=== PATIENT | male | born 1985 | race Caucasian/White ===

== ENCOUNTER 2020-03-29 08:25 | Emergency (ER) | payer OTHER, SELFPAY ==
[2020-03-29 08:32] VITALS: BMI 38.4
[2020-03-29 08:34] VITALS: BP 141/94; PULSE 85; RESP 16; TEMP 37; O2SAT 94
--- NOTE | 2020-03-29 08:35 | ED_ITS ---
HPI - Extremity Problem General: Chief complaint: Extremity Injury, Upper Stated complaint: METAL IN L ARM Time Seen by Provider: 03/29/20 08:30 Source: patient Mode of arrival: ambulatory Limitations: no limitations History of Present Illness: HPI Narrative: Pt was hammering bull dozer pin, broke off and shrapnel embedded into left forearm Review of Systems General: Reports: 10 or more systems reviewed and unremarkable except in HPI and below Skin/Breast: Reports: new lesions (fb laceration on left forearm ) Physical Exam Const: COMMON NORMALS: no acute distress, patient oriented x3, no limitations and alert GENERAL APPEARANCE: cooperative and comfortable ORIENTATION/C ONSCIOUSNESS: Yes awake, Yes oriented to person, Yes oriented to place and Yes oriented to time HENMT: COMMON NORMALS: normocephalic, atraumatic, external ears normal, EAC's normal, TM's normal bilaterally and Normal external nose present HEAD & SCALP: normal to inspection, normocephalic and atraumatic FACE & SINUS: normal facial exam, sinuses nontender and face symmetric NOSE: Normal external nose present, Normal nares present and No nasal discharge present EXTERNAL EAR: Yes external ears normal EXTERNAL AUDITORY CANAL: EAC's normal TYMPANIC MEMBRANE: TM's normal bilaterally MOUTH: Normal oral and palatal mucosa present, lip normal and tongue normal THROAT: posterior oropharynx normal, tonsils normal and uvula midline Eye: COMMON NORMALS: Equal, round and reactive pupils present, EOMs intact bilaterally and conjunctivae normal GENERAL EYE: appearance normal, both eyes and all related structures and normal light reflex EYELID: eyelids normal CONJUNCTIVA: Yes conjunctivae normal PUPIL: Yes Equal, round and reactive pupils present EOM: Yes EOM abnormal DIRECT OPHTHALMOSCOPY: Yes normal light reflex Neck/C-Spine: COMMON NORMALS: full ROM, no lymphadenopathy, supple, no meningeal signs, no JVD and Thyroid normal GENERAL: Yes normal visual inspection THYROID: Thyroid normal CERVICAL SPINE: Yes cervical ROM normal and Yes normal cervical lordosis Lymph: LYMPHATIC: no lymphadenopathy noted Chest: COMMONS NORMALS: normal inspection of the chest and normal palpation of entire chest wall Resp: COMMON NORMALS: normal respiratory effort, No retractions and clear to auscultation bilaterally AUSCULTATION: clear to auscultation bilaterally Cardio: COMMON NORMALS: no JVD, regular rate, regular rhythm, S1 normal heart sound present, S2 normal heart sound present, No gallops present (Cardio), No clicks present (Cardio), No murmurs present (Cardio), No rub (Cardio) and Peripheral pulses 2+ throughout RATE: regular rate RHYTHM: regular rhythm HEART SOUNDS: S1 normal heart sound present and S2 normal heart sound present PERIPHERAL PULSES: Peripheral pulses 2+ throughout GI: COMMON NORMALS: Normal to inspection, nondistended, normoactive bowel sounds present, Soft to palpation, non-tender and no masses PALPATION: Yes Soft to palpation : COMMON NORMALS: Yes no CVA tenderness BLADDER/KIDNEY EXAM: Yes no CVA tenderness Back/Pelvis: COMMON NORMALS: no CVA tenderness, thoracic and lumbar spine normal to inspection, no thoracic nor lumbar tenderness and thoraco-lumbar ROM normal Extremity: COMMON NORMALS: normal to inspection, full ROM, capillary refill normal, no joint enlargement, no clubbing, cyanosis or edema, no calf tenderness and no pedal edema GENERAL: Yes normal exam except as noted LEFT UPPER EXTREMITY: Yes lower arm (fb noted per xray; laceration of 0.5cmx 1.5 cm ) Neuro: COMMON NORMALS: patient oriented x3, moves all extremities, no focal motor deficits, no sensory deficits noted and gait normal SENSORIUM/ORIENTATION: Yes alert, Yes oriented to person, Yes oriented to place and Yes oriented to time MENINGEAL SIGNS: Yes no meningeal signs Psych: COMMON NORMALS: mental status grossly normal, Normal thought process present, cooperative, normal affect, speech normal and activity/motor behavior normal SPEECH: Yes normal speech THOUGHT PROCESS: Normal thought process present Skin: COMMON NORMALS: no rashes or lesions noted, no wounds and turgor normal GENERAL SKIN EXAM: no rashes or lesions noted and turgor normal Procedures Laceration Laceration 1: Site: upper extremity Side (If applicable): left Size (cm): 1.5 Description: linear Depth: simple, single layer Local Anesthetic: lidocaine 1% Amount of anesthesia used (mL): 5 Pre-repair: irrigated extensively Skin layer closed with: nylon Size (cm): 4-0 Number of sutures: 2 Technique: simple, interrupted Course ED course: Pt presents after FB embedded into lt arm while working with bull dozer pin that broke off. Xray performed. Reevaluation(s): Reevaluation #1: Dr Guardado contacted and advised that pt be seen for outpt surgery on . Will do simple closure of laceration and cleanse thoroughly. Prophyllactic antibx given and wound care instructions Time: 10:21 Vital Signs: Vital signs: Vital Signs Temperature 98.6 F 03/29/20 08:34 Pulse Rate 85 03/29/20 08:34 Respiratory Rate 16 03/29/20 08:34 Blood Pressure 141/94 03/29/20 08:34 Pulse Oximetry 94 03/29/20 08:34 Discharge Plan Discharge Patient Disposition: Home Clinical Impression: Foreign body (FB) in soft tissue Condition: Stable Prescriptions: No Action No Known Home Medications RF: 0 Referrals: Yehuda Guardado MD [Physician] - (go to office to set up appt for ) Discharge Diet: Usual diet Discharge Activity: Resume usual activity Activity Restrictions/Additional Instructions: Cleanse area once to twice daily or if dressing becomes wet. Cleanse with ns and cover with bacitracin. follow up with Dr. Guardado. 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
--- NOTE | 2020-03-29 08:50 | XR_ITS ---
WS: [id number] LEFT FOREARM 2 VIEWS HISTORY: Foreign body. COMPARISON: None available. No fracture or dislocation. Radiopaque foreign body measuring 10 mm in the soft tissues of the distal forearm. Foreign bodies in the anterior and lateral soft tissues. XR/XR forearm LT 2V [id number] IMPRESSION: 10 mm foreign body in the distal anterolateral forearm.
--- NOTE | 2020-03-29 09:47 | PC.NURSE ---
rocephen given IM split into two doses, not as infusion as listed in the MAR
[2020-03-29] MEDS: bacitracin ointment Pkt 1 EACH TOPICAL (10:19)
[2020-03-29 10:31] VITALS: BP 134/91; PULSE 76; RESP 15; O2SAT 96
== END 2020-03-29 10:30 | disposition home or self-care (01) ==
PROVIDERS: Emergency Provider Nurse Practitioner Family
DX: S51.842A Puncture wound with foreign body of left forearm, initial encounter (principal); W26.8XXA Contact with other sharp object(s), not elsewhere classified, initial encounter
CPT/HCPCS: 12001; 12345; 73090; 96372; 99282; 99283; J0696

== ENCOUNTER 2020-03-31 06:19 | Day surgery (SDC) | payer OTHER, SELFPAY ==
[2020-03-30 08:45] VITALS: BMI 38.4
[2020-03-31 06:43] VITALS: BP 127/80; PULSE 79; RESP 18; TEMP 36.5; O2SAT 97
[2020-03-31] MEDS: sodium chloride 0.9% 1,000 ML 30 ML IV (06:57)
--- NOTE | 2020-03-31 06:58 | W.PM.OPSUD ---
Surgery/Procedure H&P Update DATE OF PROCEDURE: March 31, 2020 DATE H&P PERFORMED: 03/29/20 PREOP DIAGNOSIS: Foreign body left arm PLANNED PROCEDURE: Operation Date: 03/31/20 07:55 Proposed Procedures p Foreign Body Upper Extremity left forearm 44639 S40.852A(Left) - Yehuda Guardado MD
--- NOTE | 2020-03-31 07:18 | ANES.PREANE2 ---
Pre-Anesthetic Assessment Pre-Anesthetic Assessment: Height/Weight: Height 1.75 m Weight 117.934 kg Temp Pulse Resp BP Pulse Ox 97.7 F 79 18 127/80 97 03/31/20 06:43 03/31/20 06:43 03/31/20 06:43 03/31/20 06:43 03/31/20 06:43 Preop Diagnosis: Foreign body left arm Proposed Procedure: Operation Date: 03/31/20 07:55 Proposed Procedures p Foreign Body Upper Extremity left forearm 58501 S40.852A(Left) - Yehuda Guardado MD Last intake: Intake Last Liquid Date 03/30/20 Last Liquid Time 22:00 Last Solid Date 03/30/20 Last Solid Time 22:00 Social: Social History: Alcohol (occ) and Tobacco (chews) Exam: Pre-Anes Outpt Exam: alert, oriented x 3, clear to auscultation bilaterally and regular rate & rhythm Airway: Submandibular: WNL Cervical ROM: WNL MP: 2 Dentition: Other (teeth ok) History/ROS: No significant complaints Anesthetic Plan: ASA status: 2 Anesthesia: Anesthesia Evaluation and MAC Risk of > 500 ml blood loss (7ml/kg in children): No Meds/Allergies Current Medications: Current Medications Generic Name Dose Route Start Last Admin Trade Name Freq PRN Reason Stop Dose Admin Sodium Chloride 1,000 mls @ 30 ml s/hr 03/31/20 06:30 03/31/20 06:57 Sodium Chloride 0.9% IV 04/01/20 06:29 30 mls/hr .Q24H GODFREY Administration Data Anesthesia Cardiac Studies: No Data to Display
--- NOTE | 2020-03-31 08:37 | P.OP_ITS ---
Operative Report Date of procedure: March 31, 2020 Pre-op Diagnosis: Foreign body left arm Post-op diagnosis: same Post-op Findings: Same Procedure Done: Removal foreign body left arm Pathology: none sent Surgeon: Yehuda Guardado Anesthesia: MAC Estimated blood loss (mL): 10 Complications: None Findings: The patient had a metallic foreign body approximately 4 x 6mm deep to the fascia of the right volar radial distal forearm no purulence or necrotic tissue was identified Condition: stable Disposition: PACU Procedure: Patient was taken to the operating room and sedation was provided by anesthesia. The arm was prepped and draped in the usual fashion. His stitches were removed. Utilizing deep Ujne retractors the wound was explored and deep to the fascia embedded in the area of his brachial radialis musculature of the distal forearm the metallic foreign body was identified and removed with a hemo stat. The wound was irrigated with saline. The skin is closed with 3-0 Prolene. The incision was dressed with Xeroflo gauze and 4 x 4's and Coban dressing. Patient was taken to outpatient in stable condition.
[2020-03-31 08:42] VITALS: BP 129/80; PULSE 72; RESP 18; TEMP 36.1; O2SAT 97
[2020-03-31 09:00] VITALS: BP 162/99; PULSE 60; RESP 18; TEMP 36.1; O2SAT 99
== END 2020-03-31 09:37 | disposition home or self-care (01) ==
PROVIDERS: Visit Provider Orthopaedic Surgery
PROC: (CPT 25248; principal; 2020-03-31 07:55)
DX: S50.852A Superficial foreign body of left forearm, initial encounter (principal); X58.XXXA Exposure to other specified factors, initial encounter; Y99.0 Civilian activity done for income or pay
CPT/HCPCS: 25248; 12345; J2250; J3010; J7030

== ENCOUNTER 2022-08-21 21:32 | Inpatient (IN) | payer OTHER, SELFPAY ==
[2022-08-21 21:38] VITALS: BP 130/99; PULSE 102; RESP 18; TEMP 36.4; O2SAT 98; BMI 38.4
[2022-08-21 22:05] LABS: Basophils % 0.5 %; Eosinophils # 0.1 10^3/uL (0.0-0.8); Eosinophils % 1.1 %; Hemoglobin 15.5 g/dL (11.7-16.6); Lymphocytes # 3.2 10^3/uL (0.8-4.8); Lymphocytes % 40.4 %; Mean Corpuscular HGB Conc 34.4 g/dL (30.0-36.0); Mean Corpuscular Hemoglobin 29.6 pg (28.0-34.0); Mean Corpuscular Volume 85.9 fl (80-94); Mean Platelet Volume 9.2 fL (7.4-10.4); Monocytes # 0.5 10^3/uL (0.2-0.9); Neutrophils # 4.08 10^3/uL (1.8-7.7); Neutrophils % 50.9 %; Nucleated Red Blood Cells % 0 %; Platelet Count 388 10^3/cmm (130-400); Red Blood Count 5.24 10^6/uL (4.1-5.3); Red Cell Distribution Width 11.6 % (12.1-15.1)
--- NOTE | 2022-08-21 22:14 | W.ED.PSYCHS ---
HPI - Psych General: Chief Complaint: Psychiatric Symptoms Stated Complaint: SI Time Seen by Provider: 08/21/22 21:34 Source: patient Mode of arrival: ambulatory Limitations: no limitations History of Present Illness: 37-year-old male states that he has been having depression for the last 6 months. He states that he has been having worsening depression he states that in having active suicidal plans which he will not tell me what they are he denies any worsening proving factors. Patient does admit to alcohol use he had no previous admissions or treatment for his depression he does not take any meds. Associated symptoms: Reports depression and suicidal ideation Review of Systems Const: Denies: fever(s), chills, body aches or change in appetite Eyes: Denies: blurry vision or eye discomfort ENMT: Denies: throat pain or dental pain Card: Denies: chest pain Resp: Denies: dyspnea GI: Denies: abdominal pain, nausea, vomiting or diarrhea : Denies: dysuria Musc: Denies: neck pain or back pain Skin/Breast: Denies: rash Neuro: Denies: headache(s) Psych: Reports: depression and suicidal ideation [place]/Lymph: Denies: easy bruising All/Imm: Denies: urticaria PFSH ED PFSH: Surgical History No history of previous surgery Social History (Updated 08/21/22 @ 22:14 by Hair Barton MD) Alcohol intake: current Physical Exam Const: COMMON NORMALS: no acute distress, patient oriented x3 and healthy appearing HENMT: COMMON NORMALS: normocephalic and atraumatic HEAD & SCALP: normocephalic and atraumatic Eye: COMMON NORMALS: Equal, round and reactive pupils present and EOMs intact bilaterally PUPIL: Yes Equal, round and reactive pupils present Neck/C-Spine: COMMON NORMALS: full ROM and supple Chest: COMMONS NORMALS: normal inspection of the chest and normal palpation of entire chest wall Resp: COMMON NORMALS: normal respiratory effort, No retractions, No use of accessory muscles and clear to auscultation bilaterally AUSCULTATION: clear to auscultation bilaterally Cardio: COMMON NORMALS: regular rate, regular rhythm and No murmurs present (Cardio) RATE: regular rate RHYTHM: regular rhythm GI: COMMON NORMALS: Normal to inspection, nondistended, normoactive bowel sounds present, Soft to palpation, non-tender and no masses PALPATION: Yes Soft to palpation Extremity: COMMON NORMALS: normal to inspection and full ROM Neuro: COMMON NORMALS: patient oriented x3, moves all extremities and no focal motor deficits Psych: COMMON NORMALS: mental status grossly normal, Normal thought process present and cooperative MOOD & AFFECT: Yes depressed mood THOUGHT PROCESS: Normal thought process present THOUGHT CONTENT: Yes Suicidality present Skin: COMMON NORMALS: no rashes or lesions noted and no wounds GENERAL SKIN EXAM: no rashes or lesions noted Course Vital Signs: Vital signs: Vital Signs Temperature 97.5 F L 08/21/22 21:38 Pulse Rate 102 H 08/21/22 21:38 Respiratory Rate 18 08/21/22 21:38 Blood Pressure 130/99 08/21/22 21:38 Pulse Oximetry 98 08/21/22 21:38 Oxygen Delivery Me thod 08/21/22 21:38 MDM - Psych Medical Decision Making Patient presents here with suicidal ideation he is medically cleared spoke to psychiatrist will admit patient placed on a 96-hour hold. Lab Data 08/21/22 21:55 08/21/22 21:55 Laboratory Results WBC 8.0 10^3/uL (4.0-10.0) 08/21/22 21:55 RBC 5.24 10^6/uL (4.1-5.3) 08/21/22 21:55 Hgb 15.5 g/dL (11.7-16.6) 08/21/22 21:55 Hct 45.0 % (42.0-52.0) 08/21/22 21:55 MCV 85.9 fl (80-94) 08/21/22 21:55 MCH 29.6 pg (28.0-34.0) 08/21/22 21:55 MCHC 34.4 g/dL (30.0-36.0) 08/21/22 21:55 RDW 11.6 % (12.1-15.1) L 08/21/22 21:55 Plt Count 388 10^3/cmm (130-400) 08/21/22 21:55 MPV 9.2 fL (7.4-10.4) 08/21/22 21:55 Neut % (Auto) 50.9 % 08/21/22 21:55 Lymph % (Auto) 40.4 % 08/21/22 21:55 [place] % (Auto) 6.0 % 08/21/22 21:55 Eos % (Auto) 1.1 % 08/21/22 21:55 Baso % (Auto) 0.5 % 08/21/22 21:55 Neut # (Auto) 4.08 10^3/uL (1.8-7.7) 08/21/22 21:55 Lymph # (Auto) 3.2 10^3/uL (0.8-4.8) 08/21/22 21:55 [place] # (Auto) 0.5 10^3/uL (0.2-0.9) 08/21/22 21:55 Eos # (Auto) 0.1 10^3/uL (0.0-0.8) 08/21/22 21:55 Baso # (Auto) 0.0 10^3/uL (0.0-0.1) 08/21/22 21:55 Nucleated RBC % (auto) 0 % 08/21/22 21:55 Nucleated RBCs # 0.0 /100WBC 08/21/22 21:55 Sodium 136 mmol/L (136-145) 08/21/22 21:55 Potassium 3.8 mmol/L (3.5-5.1) 08/21/22 21:55 Chloride 98 mmol/L (98-107) 08/21/22 21:55 Carbon Dioxide 27 mmol/L (22-29) 08/21/22 21:55 Anion Gap 14.8 (5-19) 08/21/22 21:55 BUN 8 mg/dL (6-20) 08/21/22 21:55 Creatinine 1.0 mg/dL (0.7-1.2) 08/21/22 21:55 GFR Calculation 84.1 mL/min (90-130) L 08/21/22 21:55 Glucose 99 mg/dL (65-115) 08/21/22 21:55 Calculated Osmolality 280 mOsm/kg (285-295) L 08/21/22 21:55 Calcium 8.9 mg/dL (8.5-10.5) 08/21/22 21:55 Total Bilirubin 0.3 mg/dL (0.15-1.2) 08/21/22 21:55 AST 36 U/L (0-40) 08/21/22 21:55 ALT 51 U/L (0-41) H 08/21/22 21:55 Alkaline Phosphatase 96 U/L (40-130) 08/21/22 21:55 Total Protein 8.0 g/dL (6.6-8.7) 08/21/22 21:55 Albumin 4.4 g/dL (3.5-5.2) 08/21/22 21:55 Globulin 3.6 g/dL (1.3-4.6) 08/21/22 21:55 Salicylates < 0.3 mg/dL (3-10) L 08/21/22 21:55 Urine Opiates Screen Negative ng/mL (Negative) 08/21/22 22:32 Acetaminophen < 5.0 ug/mL (10-30) L 08/21/22 21:55 Ur Barbiturates Screen Negative ng/mL (Negative) 08/21/22 22:32 Ur Amphetamines Screen Negative ng/mL (Negative) 08/21/22 22:32 U Benzodiazepines Scrn Negative ng/mL (Negative) 08/21/22 22:32 Ethyl Alcohol 208 mg/dL (0-10) H 08/21/22 21:55 Discharge Plan Discharge Patient Disposition: Admitted As Inpatient Admit Provider: Carlos Higgins Clinical Impression: Suicidal ideation Condition: Stable Coding Level of Care Code 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
[2022-08-21 22:25] LABS: Alanine Aminotransferase 51 U/L (0-41); Albumin Level 4.4 g/dL (3.5-5.2); Alcohol Level 208 mg/dL (0-10); Alkaline Phosphatase 96 U/L (40-130); Anion Gap 14.8 (5-19); Aspartate Amino Transferase 36 U/L (0-40); Blood Urea Nitrogen 8 mg/dL (6-20); Calcium 8.9 mg/dL (8.5-10.5); Carbon Dioxide 27 mmol/L (22-29); Chloride 98 mmol/L (98-107); Globulin 3.6 g/dL (1.3-4.6); Glomerular Filtration Rate 84.1 mL/min (90-130); Glucose 99 mg/dL (65-115); Osmolality Calculated 280 mOsm/kg (285-295); Potassium 3.8 mmol/L (3.5-5.1); Sodium 136 mmol/L (136-145); Total Bilirubin 0.3 mg/dL (0.15-1.2)
[2022-08-21 22:26] LABS: Acetaminophen < 5.0 ug/mL (10-30); Salicylate < 0.3 mg/dL (3-10)
[2022-08-21 22:44] LABS: Amphetamines Screen Urine Negative (Negative); Barbiturates Screen Urine Negative (Negative); Benzodiazepines Screen Urine Negative (Negative); Opiate Screen Urine Negative (Negative)
[2022-08-21 22:50] VITALS: BP 135/101; PULSE 93; RESP 16; O2SAT 97
[2022-08-21 23:07] LABS: Cocaine Screen Urine Negative (Negative); PCP Screen Urine Negative (Negative); THC Screen Urine Negative (Negative)
[2022-08-21 23:09] VITALS: BP 136/64; PULSE 129; RESP 18; TEMP 36.7; O2SAT 96
[2022-08-22] MEDS: nicotine 2 mg Gum BUCCAL ×2 (00:54→23:24)
[2022-08-22 06:00] VITALS: RESP 18
[2022-08-22] MEDS: thiamine 100 mg Tablet PO (09:43)
[2022-08-22] MEDS: folic acid 1 mg Tablet PO (09:43)
[2022-08-22] MEDS: multivitamin therapeutic Tablet 1 TAB PO (09:44)
[2022-08-22] MEDS: nicotine 21 mg Patch 1 PATCH TRANSDERMA (09:45)
--- NOTE | 2022-08-22 11:29 | P.NPUHP_ITS ---
Providers/Chief Complaint Admitting Physician: Carlos Higgins MD Chief Complaint: Suicidal ideation. HPI NPU History of Present Illness Kajal Luque is a 37 year old male who was brought to the emergency room by the patient's ex-girlfriend after the patient had made statements stating that he would be better off . Patient reports an an extended history of alcohol use and states that he had been at his sister's home and he had overheard his parents on the other end of the phone having made a negative statement about him and he proceeded to drink approximately 15 beers to the point of becoming some what belligerent and agitated. The patient had reported not remembering in detail what it happened but stated that he was driven to the emergency room for further evaluation by his ex-girlfriend. He reports that he has been drinking excessively since the age of 16 and stated that he had been sober for 30 days sometime between the beginning of June through the beginning of July but had relapsed and begun to drink heavily again. He reports an increase in alcohol consumption over the last 6 months after he had been charged with a DUI 6 months ago. He reports that he continues to drink despite adverse consequences with increased intolerance reported. He has not endorsed any history of blackouts or delirium tremens. He reports drinking every other day. He reports that he has been more depressed over the past 6 months with increased cravings for alcohol. He reports low energy low motivation increased episodes of crying and increased feelings of loneliness but reports no suicidal thoughts. He denies any anxiety symptoms. He reports no history of psychosis. He minimizes any use of other substances of abuse.His blood alcohol level on admission was 208. Inpatient psychiatric history: None Outpatient psychiatric history: None other than brief counseling after his first DUI in 2007. Medical history: Notable for presence of a foreign body in the left upper arm. Surgical history: None Allergies: No known drug allergies Drug and alcohol history: He endorses an extensive history of alcohol use beginning at the age of 16. He reports occasional use of marijuana. He reports no other illicit substance use. Medications: None Legal history: History of DUI x2 with no history of incarceration. Social history: He was born in [facility] and was raised by his [facility] parents. He has 2 biological sisters. He reports being in the presence of multiple foster kids in the household as his parents had taken on that role during his childhood. He reports having graduated from [employer] and reports having been for 10 years and currently for the past 6 years. He has 2 children ages 15 and 13 who live with their mother. He reports no history of learning disorder. He reports no history of sexual physical or emotional abuse. He does report engaging in alcohol use beginning at the age of 16. He currently uses oral chewed tobacco for several years. 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 He currently resides with his biological parents. Family psychiatric history is notable for alcoholism in the paternal grandfather. Meds NPU Home Medications Medication Instructions Recorded Confirmed Last Taken Type No Known Home Medications 04/13/20 08/22/22 Unknown History Allergies Allergy/AdvReac Type Severity Reaction Status Date / Time No Known Allergies Allergy Verified 04/13/20 10:51 PFS NPU PFSH: Surgical History No history of previous surgery Social History (Updated 08/21/22 @ 22:14 by Hair Barton MD) Alcohol intake: current Mental Status Exam MSE Comments: Patient is a casually dressed white male who was quiet and cooperative on interview. He did appear to be in mild distress. There was some evidence of psychomotor retardation. His mood was described as depressed. His affect was mood congruent and restricted in range. His thought process was linear logical and goal-directed. He minimized any suicidal ideation at this time. He denied any homicidal ideation. He did endorse sense of hopelessness during the interview. There was no clear evidence of any delusional thinking. He did not appear to be responding to internal stimuli. His attention appeared fair. His insight was limited. His judgment was poor. His impulse control remained guarded at this time. He was alert and oriented to person place time and situation. His recent and remote memory appeared grossly intact. Vitals/I&O/Wt Last Vital Signs Temp 98.1 F 08/21/22 23:09 Pulse 129 H 08/21/22 23:09 Resp 18 08/22/22 06:00 BP 136/64 08/21/22 23:09 Pulse Ox 96 08/21/22 23:09 O2 Del Method 08/21/22 23:09 Weight last 48 hrs Weight 117.934 kg Data NPU 08/21/22 21:55 08/21/22 21:55 A&P Assessment and plan (1) Major depressive disorder with current active episode: (2) Alcohol dependence: Plan Edy is a 37-year-old white male with alcohol dependence and major depressive disorder currently endorsing vague suicidal ideation with significant alcohol consumption who appears to have had little treatment for either issue. He has significant genetic loading for alcoholism but appears to be resilient thus far and motivated to change. #1. Engage patient in individual milieu and group therapy #2 CIWA protocol #3 recommend sober living treatment at the highest level of care to which the patient is willing to commit. #4 continue every 15 minute checks for safety #5 we will initiate Wellbutrin XL 150 mg daily to target depression with likely use of oral naltrexone for targeting alcohol cravings. Involuntary Hold Information 96 Hour Hold: 96 Hour Involuntary Admission: Yes 96 Hour Hold Ending Date: 08/27/22 96 Hour Hold Ending Time: 22:35 Attestations NPU Medical Necessity Statement*: Inpatient hospitalization is medically necessary and the clinically appropriate intervention at this time. We will monitor medications and make changes as indicated. The patient will be in the hospital for over 2 midnights. Is likely length of stay is 5 to 7 days. 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
[2022-08-22 14:00] VITALS: RESP 18
[2022-08-22] MEDS: buPROPion XL (24 HR) 150 mg Tablet PO (14:55)
[2022-08-22 22:00] VITALS: BP 129/86; PULSE 86; RESP 17; TEMP 36.6; O2SAT 99
[2022-08-23 06:00] VITALS: RESP 16
[2022-08-23] MEDS: thiamine 100 mg Tablet PO (09:01)
[2022-08-23] MEDS: folic acid 1 mg Tablet PO (09:01)
[2022-08-23] MEDS: multivitamin therapeutic Tablet 1 TAB PO (09:01)
[2022-08-23] MEDS: buPROPion XL (24 HR) 150 mg Tablet PO (09:01)
--- NOTE | 2022-08-23 12:28 | P.NPUDS_ITS ---
Diagnoses at Discharge Discharge Diagnosis (1) Major depressive disorder with current active episode: Status: Acute (2) Alcohol dependence: Status: Acute Reason for Visit Reason for Visit: Suicidal ideation. Brief History: History of Present Illness Kajal Luque is a 37 year old male who was brought to the emergency room by the patient's ex-girlfriend after the patient had made statements stating that he would be better off .? Patient reports an an extended history of alcohol use and states that he had been at his sister's home and he had overheard his parents on the other end of the phone having made a negative statement about him and he proceeded to drink approximately 15 beers to the point of becoming somewhat belligerent and agitated.? The patient had reported not remembering in detail what it happened but stated that he was driven to the emergency room for further evaluation by his ex-girlfriend.? He reports that he has been drinking excessively since the age of 16 and stated that he had been sober for 30 days sometime between the beginning of June through the beginning of July but had relapsed and begun to drink heavily again.? He reports an increase in alcohol consumption over the last 6 months after he had been charged with a? DUI 6 months ago.? He reports that he continues to drink despite adverse consequences with increased intolerance reported.? He has not endorsed any history of blackouts or delirium tremens.? He reports drinking every other day.? He reports that he has been more depressed over the past 6 months with increased cravings for alcohol.? He reports low energy low motivation increased episodes of crying and increased feelings of loneliness but reports no suicidal thoughts.? He denies any anxiety symptoms.? He reports no history of psychosis.? He minimizes any use of other substances of abuse.His blood alcohol level on admission was 208. Inpatient psychiatric history: None Outpatient psychiatric history: None other than brief counseling after his first DUI in 2007. Medical history: Notable for presence of a foreign body in the left upper arm. Surgical history: None Allergies: No known drug allergies Drug and alcohol history: He endorses an extensive history of alcohol use beginning at the age of 16.? He reports occasional use of marijuana.? He reports no other illicit substance use. Medications: None Legal history: History of DUI x2 with no history of incarceration. Social history: He was born in [facility] and was raised by his biological parents.? He has 2 biological sisters.? He reports being in the presence of multiple foster kids in the household as his parents had taken on that role during his childhood.? He reports having graduated from [employer] and reports having been for 10 years and currently for the past 6 years.? He has 2 children ages 15 and 13 who live with their mother.? He reports no history of learning disorder.? He reports no history of sexual physical or emotional abuse.? He does report engaging in alcohol use beginning at the age of 16.? He currently uses oral chewed tobacco for several years.? 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 He currently resides with his biological parents. Family psychiatric history is notable for alcoholism in the paternal grandfather. Hospital Course Hospital Course Discharge Summary: During the hospitalization, patient had routine laboratory studies which were within normal limits except for few outliers. Additionally there was a general medical evaluation which was also within normal limits and revealed no new acute processes. At the time of discharge, lethality was denied and psychosis was resolving. Mood and anxiety were well managed. Patient endorsed a plan to avoid all drugs of abuse and follow-up with the aftercare recommendations of the treatment team. Patient was evaluated and deemed to be absent credible lethality, and had achieved the maximum benefit from an inpatient hospitalization, so was discharged. Involuntary Hold Information 96 Hour Hold: 96 Hour Involuntary Admission: Yes 96 Hour Hold Ending Date: 08/27/22 96 Hour Hold Ending Time: 22:35 Mental Status Exam MSE Comments: Patient is a casually dressed white male who was quiet and cooperative on interview. He did not appear to be in acute distress. There was evidence of mild psychomotor retardation. His mood was described as okay. His affect was pichardo and less restricted in range. His thought process was linear logical and goal-directed. He minimized any suicidal ideation at this time. He denied any homicidal ideation on discharge. There was no clear evidence of any delusional thinking. He did not appear to be responding to internal stimuli. His attention appeared fair. His insight was limited. His judgment was fair. His impulse control remained guarded at this time. He was alert and oriented to person place time and situation. His recent and remote memory appeared grossly intact. Discharge Data Studies Completed and Pending: Laboratory Results WBC 8.0 10^3/uL (4.0- 10.0) 08/21/22 21:55 RBC 5.24 10^6/uL (4.1 -5.3) 08/21/22 21:55 Hgb 15.5 g/dL (11.7-1 6.6) 08/21/22 21:55 Hct 45.0 % (42.0-52.0 ) 08/21/22 21:55 MCV 85.9 fl (80-94) 08/21/22 21:55 MCH 29.6 pg (28.0-34. 0) 08/21/22 21:55 MCHC 34.4 g/dL (30.0-3 6.0) 08/21/22 21:55 RDW 11.6 % (12.1-15.1 ) L 08/21/22 21:55 Plt Count 388 10^3/cmm (130 -400) 08/21/22 21:55 MPV 9.2 fL (7.4-10.4) 08/21/22 21:55 Neut % (Auto) 50.9 % 08/21/22 21:55 Lymph % (Auto) 40.4 % 08/21/22 21:55 [place] % (Auto) 6.0 % 08/21/22 21:55 Eos % (Auto) 1.1 % 08/21/22 21:55 Baso % (Auto) 0.5 % 08/21/22 21:55 Neut # (Auto) 4.08 10^3/uL (1.8 -7.7) 08/21/22 21:55 Lymph # (Auto) 3.2 10^3/uL (0.8- 4.8) 08/21/22 21:55 [place] # (Auto) 0.5 10^3/uL (0.2- 0.9) 08/21/22 21:55 Eos # (Auto) 0.1 10^3/uL (0.0- 0.8) 08/21/22 21:55 Baso # (Auto) 0.0 10^3/uL (0.0- 0.1) 08/21/22 21:55 Nucleated RBC % (a uto) 0 % 08/21/22 21:55 Nucleated RBCs # 0.0 /100WBC 08/21/22 21:55 Sodium 136 mmol/L (136-1 45) 08/21/22 21:55 Potassium 3.8 mmol/L (3.5-5 .1) 08/21/22 21:55 Chloride 98 mmol/L (98-107 ) 08/21/22 21:55 Carbon Dioxide 27 mmol/L (22-29) 08/21/22 21:55 Anion Gap 14.8 (5-19) 08/21/22 21:55 BUN 8 mg/dL (6-20) 08/21/22 21:55 Creatinine 1.0 mg/dL (0.7-1. 2) 08/21/22 21:55 GFR Calculation 84.1 mL/min (90-1 30) L 08/21/22 21:55 Glucose 99 mg/dL (65-115) 08/21/22 21:55 Calculated Osmolal ity 280 mOsm/kg (285- 295) L 08/21/22 21:55 Calcium 8.9 mg/dL (8.5-10 .5) 08/21/22 21:55 Total Bilirubin 0.3 mg/dL (0.15-1 .2) 08/21/22 21:55 AST 36 U/L (0-40) 08/21/22 21:55 ALT 51 U/L (0-41) H 08/21/22 21:55 Alkaline Phosphata se 96 U/L (40-130) 08/21/22 21:55 Total Protein 8.0 g/dL (6.6-8.7 ) 08/21/22 21:55 Albumin 4.4 g/dL (3.5-5.2 ) 08/21/22 21:55 Globulin 3.6 g/dL (1.3-4.6 ) 08/21/22 21:55 Salicylates < 0.3 mg/dL (3-10 ) L 08/21/22 21:55 Urine Opiates Scre en Negative ng/mL (N egative) 08/21/22 22:32 Acetaminophen < 5.0 ug/mL (10-3 0) L 08/21/22 21:55 Ur Barbiturates Sc reen Negative ng/mL (N egative) 08/21/22 22:32 Ur Phencyclidine S crn Negative ng/mL (N egative) 08/21/22 22:32 Ur Amphetamines Sc reen Negative ng/mL (N egative) 08/21/22 22:32 U Benzodiazepines Scrn Negative ng/mL (N egative) 08/21/22 22:32 Urine Cocaine Scre en Negative ng/mL (N egative) 08/21/22 22:32 U Marijuana (THC) Screen Negative ng/mL (N egative) 08/21/22 22:32 Ethyl Alcohol 208 mg/dL (0-10) H 08/21/22 21:55 Vitals: Last Vital Signs Temp 97.9 F 08/22/22 22:00 Pulse 86 08/22/22 22:00 Resp 16 08/23/22 06:00 BP 129/86 08/22/22 22:00 Pulse Ox 99 08/22/22 22:00 O2 Del Method 08/22/22 22:00 Discharge Plan Discharge Patient Disposition: Home Condition: Stable Prescriptions: No Action bupropion HCl 150 mg tablet extended release 24 hr 150 mg PO BID 30 Days Qty: 60 0RF Discharge Orders: Discharge Order (Routine); Ordered 08/23/22 Ordered By: Isael Lewis Referrals: [facility] [Outside] - 08/24/22 1:30 pm Dustin Arguello FNP [Nurse Practitioner] - 08/30/22 10:45 am Discharge Diet: Usual diet Discharge Activity: Resume usual activity Patient Instructions: Alcohol Abuse, Depression, Bupropion (By mouth), Naltrexone (By mouth), Opioid Safety Discharge Attestations NPU Time Spent in Discharge Care*: less than 30 min Coding Level of Care Code Established Pt Acute Chg FW DC note Patient Type Established History Problem Focused Exam Problem Focused Medical Decision Making Straight Forward Diagnoses Major depressive disorder with current active episode F32.9 Alcohol dependence F10.20
[2022-08-23] MEDS: naltrexone hcl 50 mg Tablet PO (12:31)
[2022-08-23 12:39] VITALS: BP 129/86; PULSE 86; RESP 16; TEMP 36.6; O2SAT 99
--- NOTE | 2022-08-23 13:28 | PC.OT ---
OT Eval attempted - Patient not evalled on this day secondary to patient discharging from unit at time of eval.
== END 2022-08-23 13:29 | disposition home or self-care (01) | DRG 897 ==
LOC: ER 21:51 → NP 22:48
PROVIDERS: Admitting Provider Psychiatry & Neurology Psychiatry; Emergency Provider Emergency Medicine; Visit Provider Psychiatry & Neurology Psychiatry
DX: F10.229 Alcohol dependence with intoxication, unspecified (principal); R45.851 Suicidal ideations; Y90.7 Blood alcohol level of 200-239 mg/100 ml; F32.9 Major depressive disorder, single episode, unspecified; F17.220 Nicotine dependence, chewing tobacco, uncomplicated
CPT/HCPCS: 80053; 80306; 80307; 85025; 99285